=== PATIENT | male | born 1945 | race Asian ===

== ENCOUNTER 2021-02-24 03:13 | Emergency (ER) | payer MEDICARE ==
[~2021-02-24] VITALS: Ht 177.8 cm; Wt 95.0 kg
[2021-02-24] MEDS ORDERED: ALBUTEROL SULFATE HFA 90 MCG/PUFF 8 GM INHALER IH ONE (03:30)
[2021-02-24] MEDS ORDERED: 0.9% SODIUM CHLORIDE 10 ML SYRINGE IVP PRN (03:30)
[2021-02-24] MEDS ORDERED: ACETAMINOPHEN 1000 MG/ISO-OSM 100 ML IV ONE (03:30)
[2021-02-24] MEDS ORDERED: SODIUM CHLORIDE 0.9% 2,500 ML IV ONE (03:30)
[2021-02-24 04:08] LABS: D-DIMER 2.13 mg/L FEU (0.00-0.50); PROTHROMBIN TIME 10.7 SEC (9.4-11.6)
[2021-02-24 04:09] LABS: BASOPHILS % (AUTO) 0.4 % (0.0-2.0); EOSINOPHILS % (AUTO) 0.8 % (1.0-6.0); HEMATOCRIT 39.2 % (41-53); HEMOGLOBIN 13.6 g/dL (13.5-17.5); LYMPHOCYTES # (AUTO) 0.7 K/uL (1.0-4.8); LYMPHOCYTES % (AUTO) 13.4 % (22.0-44.0); MEAN CORPUSCULAR HEMOGLOBIN 31.9 pg (26.0-34.0); MEAN CORPUSCULAR HGB CONC 34.6 G/dL (31.0-37.0); MEAN CORPUSCULAR VOLUME 92 fL (80-100); MONOCYTES # (AUTO) 0.2 K/uL (0.1-1.0); MONOCYTES % (AUTO) 3.2 % (2.0-9.0); NEUTROPHILS # (AUTO) 4.6 K/uL (1.8-7.7); NEUTROPHILS % (AUTO) 82.2 % (40.0-70.0); PLATELET COUNT (AUTO) 190 K/uL (150-450); RED BLOOD CELL COUNT(AUTO) 4.25 MIL/uL (4.50-5.90)
[2021-02-24 04:18] LABS: COVID AG,FIA SOURCE NASOPHARYNGEAL
[2021-02-24 04:19] LABS: ANION GAP 11 mmol/L (8-16); CALCIUM, TOTAL 8.7 mg/dL (8.8-10.5); CARBON DIOXIDE 25 mmol/L (22-29); CHLORIDE 101 mmol/L (98-107); CREATININE 1.19 mg/dL (0.60-1.30); GLOMERULAR FILTR. RATE CALC 60 mL/min (>60); GLUCOSE,RANDOM 273 mg/dL (70-110); POTASSIUM 3.6 mmol/L (3.5-5.1); SODIUM SERUM 137 mmol/L (136-145); UREA NITROGEN, BLOOD 14 mg/dL (7-18)
[2021-02-24] MEDS ORDERED: AZITHROMYCIN 500 MG/NS 250 ML IV ONE (04:30)
[2021-02-24] MEDS ORDERED: CefTRIAXone 1 GM/DEXTROSE 50 ML IV ONE (04:30)
[2021-02-24 04:40] LABS: APPEARANCE,URINE CLEAR (CLEAR); GLUCOSE, URINE (UA) 250 mg/dL (NEGATIVE); KETONES,URINE TRACE mg/dL (NEGATIVE); LEUKOCYTE ESTERASE ,URINE SMALL (NEGATIVE); NITRATE,URINE NEGATIVE (NEGATIVE); OCCULT BLOOD,URINE MODERATE (NEGATIVE); PROTEIN,URINE SEE CONFIRM (NEGATIVE)
[2021-02-24 04:41] LABS: INFLUENZA TYPE A NEGATIVE FOR TYPE A (NEGATIVE); INFLUENZA TYPE B NEGATIVE FOR TYPE B (NEGATIVE)
[2021-02-24 04:42] LABS: ALANINE AMINOTRANSFERASE 93 U/L (12-78); ALBUMIN 3.2 g/dL (3.4-5.0); ALKALINE PHOSPHATASE 65 U/L (46-116); ASPARTATE AMINOTRANSFERASE 58 U/L (15-37); BILIRUBIN,TOTAL 0.6 mg/dL (0.1-1.0); CREATINE KINASE, TOTAL ONLY 270 U/L (39-308); TOTAL PROTEIN, SERUM 7.3 g/dL (6.4-8.2)
[2021-02-24 04:46] LABS: BILIRUBIN,URINE PRELIM. POSITIVE (NEGATIVE)
[2021-02-24 04:47] LABS: SULFOSALICYLIC ACID,URINE 4+ (Negative)
[2021-02-24 04:48] LABS: BACTERIA,URINE Moderate /HPF (None Seen)
[2021-02-24 04:50] LABS: B-TYPE NATRIURETIC PEPTIDE 139 pg/mL (0-100)
[2021-02-24 05:13] LABS: LACTIC ACID 3.5 mmol/L (0.4-2.0)
[2021-02-24 08:30] VITALS: BP 140/93
== END 2021-02-24 09:11 | disposition short-term general hospital (02) ==
LOC: EMS 03:15
DX: A41.9 Sepsis, unspecified organism (principal); J18.9 Pneumonia, unspecified organism; N39.0 Urinary tract infection, site not specified; I45.10 Unspecified right bundle-branch block; Z20.822 Contact with and (suspected) exposure to COVID-19
CPT/HCPCS: 36415; 71045; 80053; 81001; 82550; 83605; 83880; 84145; 84484; 85025; 85379; 85610; 85730; 87040; 87077; 87086; 87205; 87426; 87804; 93005; 94640; 96365; 96367; 96375; 99291; J0131; J0456; J0696; U0003; 81002; J3535

== ENCOUNTER 2021-05-09 18:35 | Emergency (ER) | payer MEDICARE ==
[~2021-05-09] VITALS: Ht 180.3 cm; Wt 84.0 kg
[2021-05-09] MEDS ORDERED: LOSA-382 PO (18:52)
[2021-05-09] MEDS ORDERED: FLUT1BLS3 IH (18:52)
[2021-05-09 21:00] VITALS: BP 133/85
[2021-05-09 21:32] LABS: APPEARANCE,URINE CLEAR (CLEAR); BILIRUBIN,URINE NEGATIVE (NEGATIVE); GLUCOSE, URINE (UA) >=1000 mg/dL (NEGATIVE); KETONES,URINE 15 mg/dL (NEGATIVE); LEUKOCYTE ESTERASE ,URINE TRACE (NEGATIVE); NITRATE,URINE POSITIVE (NEGATIVE); OCCULT BLOOD,URINE TRACE (NEGATIVE); PROTEIN,URINE TRACE (NEGATIVE); UROBILINOGEN,URINE 0.2 mg/dL (<=1.0)
[2021-05-09 21:47] LABS: BACTERIA,URINE Many /HPF (None Seen); RBC,URINE 0-2 /HPF (0-2); WBC,URINE 51-100 /HPF (0-5)
[2021-05-09 21:48] LABS: SQUAMOUS EPITHELIAL CELL,UR Few /LPF (None Seen)
[2021-05-09] MEDS ORDERED: CEPH500B PO (21:56)
[2021-05-09] MEDS ORDERED: CEPHALEXIN MONOHYDRATE 500 MG CAPSULE PO ONE (22:00)
== END 2021-05-09 22:11 | disposition home or self-care (01) ==
LOC: EMS 18:46
DX: N39.0 Urinary tract infection, site not specified (principal); J45.909 Unspecified asthma, uncomplicated; E11.9 Type 2 diabetes mellitus without complications; I10 Essential (primary) hypertension; F17.210 Nicotine dependence, cigarettes, uncomplicated
CPT/HCPCS: 81001; 87086; 99283

== ENCOUNTER 2021-06-02 02:54 | Inpatient (IN) | payer MEDICARE ==
[2021-06-02] VITALS (7 sets, daily range): BP systolic 96–180; BP diastolic 50–87
[~2021-06-02] VITALS: Ht 180.3 cm; Wt 95.5 kg
[~2021-06-02 02:54] MED LIST: CEPH500B PO; FLUT1BLS3 IH; LOSA-382 PO
[2021-06-02] MEDS ORDERED: ACETAMINOPHEN 1000 MG/ISO-OSM 100 ML IV ONE (03:00)
[2021-06-02] MEDS ORDERED: 0.9% SODIUM CHLORIDE 10 ML SYRINGE IVP PRN (03:00)
[2021-06-02] MEDS ORDERED: PIPERACILLIN/TAZO 3.375 GM/D5W 50 ML IV ONE (03:00)
[2021-06-02] MEDS ORDERED: SODIUM CHLORIDE 0.9% 1,000 ML IV ONE (03:00)
[2021-06-02] MEDS ORDERED: VANCOMYCIN HCL 1 GM/D5% WATER 200 ML IV ONE ×2 (03:00→21:00)
[2021-06-02 03:58] LABS: COVID AG,FIA SOURCE NASOPHARYNGEAL
[2021-06-02 04:06] LABS: ALANINE AMINOTRANSFERASE 38 U/L (12-78); ALBUMIN 2.7 g/dL (3.4-5.0); ALKALINE PHOSPHATASE 62 U/L (46-116); ANION GAP 17 mmol/L (8-16); ASPARTATE AMINOTRANSFERASE 32 U/L (15-37); BILIRUBIN,TOTAL 0.7 mg/dL (0.1-1.0); CALCIUM, TOTAL 8.3 mg/dL (8.8-10.5); CARBON DIOXIDE 23 mmol/L (22-29); CHLORIDE 94 mmol/L (98-107); CREATINE KINASE, TOTAL ONLY 85 U/L (39-308); GLOMERULAR FILTR. RATE CALC 59 mL/min (>60); PHOSPHORUS 2.2 mg/dL (2.5-4.9); POTASSIUM 3.5 mmol/L (3.5-5.1); SODIUM SERUM 134 mmol/L (136-145); TOTAL PROTEIN, SERUM 7.7 g/dL (6.4-8.2); UREA NITROGEN, BLOOD 14 mg/dL (7-18)
[2021-06-02] MEDS ORDERED: ONDANSETRON HCL 4 MG/2 ML VIAL IVP PRN (04:15)
[2021-06-02 04:31] LABS: BASOPHILS % (AUTO) 0.4 % (0.0-2.0); EOSINOPHILS % (AUTO) 0.5 % (1.0-6.0); HEMATOCRIT 37.7 % (41-53); LYMPHOCYTES # (AUTO) 0.4 K/uL (1.0-4.8); LYMPHOCYTES % (AUTO) 8.9 % (22.0-44.0); MEAN CORPUSCULAR HEMOGLOBIN 31.7 pg (26.0-34.0); MEAN CORPUSCULAR HGB CONC 34.5 G/dL (31.0-37.0); MEAN CORPUSCULAR VOLUME 92 fL (80-100); MONOCYTES # (AUTO) 0.2 K/uL (0.1-1.0); MONOCYTES % (AUTO) 4.7 % (2.0-9.0); PLATELET COUNT (AUTO) 205 K/uL (150-450); RED BLOOD CELL COUNT(AUTO) 4.11 MIL/uL (4.50-5.90)
[2021-06-02] MEDS ORDERED: MAGNESIUM SULFATE 2 GM/WATER 50 ML IV ONE (05:00)
[2021-06-02] MEDS ORDERED: POTASSIUM CHLORIDE 20 MEQ ER TABLET PO ONE (05:00)
[2021-06-02] MEDS ORDERED: POTASSIUM PHOS,M-BASIC-D-BASIC 10 MMOL in DEXTROSE 5%-WATER 100 ML IV ONE (05:00)
[2021-06-02] MEDS ORDERED: INSULIN REGULAR, HUMAN 100 UNITS/ML IVP ONE (05:00)
[2021-06-02 05:16] LABS: AMMONIA < 10 umol/L (11-32)
[2021-06-02 05:18] LABS: GLUCOSE,RANDOM 419 mg/dL (70-110); LACTIC ACID 1.7 mmol/L (0.4-2.0)
[2021-06-02 05:24] LABS: NEUTROPHILS % (AUTO) 85.5 % (40.0-70.0)
[2021-06-02 05:31] LABS: B-TYPE NATRIURETIC PEPTIDE 104 pg/mL (0-100)
[2021-06-02 05:53] LABS: INFLUENZA TYPE A NEGATIVE FOR TYPE A (NEGATIVE)
[2021-06-02 06:09] LABS: INFLUENZA TYPE B POSITIVE FOR TYPE B (NEGATIVE)
[2021-06-02 06:31] LABS: GLUCOMETER DEV NAME(LOC) ERT.5; GLUCOSE,POINT OF CARE 367 MG/DL (70-110)
[2021-06-02 07:26] LABS: GLUCOSE,POINT OF CARE 335 MG/DL (70-110)
[2021-06-02] MEDS: POTASSIUM CHL 10 MEQ/WATER 50 ML IV SCH ×2 (07:34→08:53)
[2021-06-02] MEDS ORDERED: DEXTROSE 50%-WATER 25 GM/50 ML SYRINGE IVP PRN (08:00)
[2021-06-02] MEDS: RINGERS SOLUTION,LACTATED 1,000 ML IV SCH ×3 (08:23→23:09)
[2021-06-02] MEDS: INSULIN GLARGINE,HUM.REC.ANLOG 100 UNITS/ML SQ SCH ×2 (08:23→20:11)
[2021-06-02] MEDS: HEPARIN SODIUM,PORCINE 5,000 UNITS/ML VIAL SQ SCH ×3 (08:23→23:09)
[2021-06-02] MEDS ORDERED: PNEUMOCOCCAL VACCINE POLYVALENT 0.5 ML VIAL [PPSV23] IM. ONE (11:45)
[2021-06-02] MEDS: PIPERACILLIN/TAZO 3.375 GM/D5W 50 ML IV SCH ×3 (12:00→23:09)
[2021-06-02] MEDS: INSULIN LISPRO 100 UNITS/ML SQ PRN ×3 (12:06→20:12)
[2021-06-02 12:31] LABS: GLUCOMETER DEV NAME(LOC) 5S.1B; GLUCOSE,POINT OF CARE 395 MG/DL (70-110)
[2021-06-02] MEDS: OSELTAMIVIR PHOSPHATE 75 MG CAPSULE PO SCH ×2 (13:42→20:12)
[2021-06-02 15:50] LABS: BILIRUBIN,URINE NEGATIVE (NEGATIVE); GLUCOSE, URINE (UA) >=1000 mg/dL (NEGATIVE); KETONES,URINE 40-60 mg/dL (NEGATIVE); NITRATE,URINE NEGATIVE (NEGATIVE); PH,URINE 5.5 (5.0-8.0); PROTEIN,URINE TRACE mg/dL (NEGATIVE); SPECIFIC GRAVITIY, URINE 1.029 (1.003-1.030); UROBILINOGEN,URINE <=1.0 mg/dL (<=1.0)
[2021-06-02 15:56] LABS: AMPHET/METH SCREEN,URINE NEGATIVE (NEGATIVE); BARBITURATE SCREEN, URINE NEGATIVE (NEGATIVE); BENZODIAZEPINES SCREEN,URINE NEGATIVE (NEGATIVE); CANNABINOID SCREEN,URINE NEGATIVE (NEGATIVE); COCAINE SCREEN,URINE NEGATIVE (NEGATIVE); METHADONE SCREEN, URINE NEGATIVE (NEGATIVE); OPIATE SCREEN,URINE NEGATIVE (NEGATIVE); PHENCYCLIDINE SCREEN,URINE NEGATIVE (NEGATIVE)
[2021-06-02 16:22] LABS: APPEARANCE,URINE HAZY (CLEAR); LEUKOCYTE ESTERASE ,URINE MODERATE (NEGATIVE); OCCULT BLOOD,URINE SMALL (NEGATIVE)
[2021-06-02 16:23] LABS: BACTERIA,URINE Moderate /HPF (None Seen)
[2021-06-02 17:31] LABS: GLUCOMETER DEV NAME(LOC) 5N.3; GLUCOSE,POINT OF CARE 379 MG/DL (70-110)
[2021-06-02] MEDS: ACETAMINOPHEN 325 MG TABLET PO PRN ×2 (17:44→20:13)
[2021-06-02] MEDS ORDERED: ALBUTEROL SULFATE 2.5 MG/0.5 ML NEB SOLUTION NEB PRN (17:45)
[2021-06-03 04:29] VITALS: BP 109/59
[2021-06-03] MEDS: PIPERACILLIN/TAZO 3.375 GM/D5W 50 ML IV SCH ×3 (04:47→16:23)
[2021-06-03] MEDS: ACETAMINOPHEN 325 MG TABLET PO PRN ×2 (04:48→21:06)
[2021-06-03 06:46] LABS: GLUCOMETER DEV NAME(LOC) 5N.3; GLUCOSE,POINT OF CARE 308 MG/DL (70-110)
[2021-06-03] MEDS: INSULIN LISPRO 100 UNITS/ML SQ PRN ×4 (06:46→21:07)
[2021-06-03 07:16] LABS: ANION GAP 8 mmol/L (8-16); CALCIUM, TOTAL 8.3 mg/dL (8.8-10.5); CARBON DIOXIDE 26 mmol/L (22-29); CHLORIDE 101 mmol/L (98-107); CREATININE 0.78 mg/dL (0.60-1.30); GLUCOSE,RANDOM 174 mg/dL (70-110); PHOSPHORUS 2.4 mg/dL (2.5-4.9); POTASSIUM 3.1 mmol/L (3.5-5.1); SODIUM SERUM 135 mmol/L (136-145); UREA NITROGEN, BLOOD 9 mg/dL (7-18)
[2021-06-03 07:17] LABS: GLOMERULAR FILTR. RATE CALC > 60 mL/min (>60)
[2021-06-03 07:44] VITALS: BP 96/57
[2021-06-03] MEDS ORDERED: VANCOMYCIN HCL 750 MG in DEXTROSE 5%-WATER 250 ML IV SCH (08:00)
[2021-06-03] MEDS: HEPARIN SODIUM,PORCINE 5,000 UNITS/ML VIAL SQ SCH (08:13)
[2021-06-03] MEDS: OSELTAMIVIR PHOSPHATE 75 MG CAPSULE PO SCH ×2 (08:13→21:05)
[2021-06-03] MEDS: INSULIN GLARGINE,HUM.REC.ANLOG 100 UNITS/ML SQ SCH ×2 (08:16→21:07)
[2021-06-03 11:16] VITALS: BP 104/64
[2021-06-03] MEDS: POTASSIUM CHLORIDE 20 MEQ ER TABLET PO PRN (11:35)
[2021-06-03] MEDS: SODIUM CHLORIDE 0.9% 1,000 ML IV SCH ×2 (11:36→21:11)
[2021-06-03 11:57] LABS: GLUCOMETER DEV NAME(LOC) 5S.1B; GLUCOSE,POINT OF CARE 181 MG/DL (70-110)
[2021-06-03 11:57] LABS: GLUCOMETER DEV NAME(LOC) 5S.1B; GLUCOSE,POINT OF CARE 250 MG/DL (70-110)
[2021-06-03 15:29] VITALS: BP 109/60
[2021-06-03] MEDS: VANCOMYCIN HCL 750 MG in DEXTROSE 5%-WATER 250 ML IV SCH (16:20)
[2021-06-03 20:00] VITALS: BP 114/64
[2021-06-04] VITALS: BP 109/55
[2021-06-04] MEDS: PIPERACILLIN/TAZO 3.375 GM/D5W 50 ML IV SCH ×5 (00:03→22:46)
[2021-06-04] MEDS: VANCOMYCIN HCL 750 MG in DEXTROSE 5%-WATER 250 ML IV SCH ×4 (00:04→23:40)
[2021-06-04 04:00] VITALS: BP 112/61
[2021-06-04] MEDS: ACETAMINOPHEN 325 MG TABLET PO PRN (05:00)
[2021-06-04] MEDS: SODIUM CHLORIDE 0.9% 1,000 ML IV SCH (05:01)
[2021-06-04 06:36] LABS: ANION GAP 11 mmol/L (8-16); CALCIUM, TOTAL 8.4 mg/dL (8.8-10.5); CARBON DIOXIDE 26 mmol/L (22-29); CHLORIDE 99 mmol/L (98-107); CREATININE 0.75 mg/dL (0.60-1.30); GLUCOSE,RANDOM 184 mg/dL (70-110); POTASSIUM 3.1 mmol/L (3.5-5.1); SODIUM SERUM 136 mmol/L (136-145); UREA NITROGEN, BLOOD 8 mg/dL (7-18); VANCOMYCIN,RANDOM 17.5 mcg/mL (25.0-50.0)
[2021-06-04 06:46] LABS: GLOMERULAR FILTR. RATE CALC > 60 mL/min (>60)
[2021-06-04 06:46] LABS: GLUCOMETER DEV NAME(LOC) 5N.3; GLUCOSE,POINT OF CARE 264 MG/DL (70-110)
[2021-06-04 06:47] LABS: GLUCOMETER DEV NAME(LOC) 5N.3; GLUCOSE,POINT OF CARE 300 MG/DL (70-110)
[2021-06-04] MEDS: INSULIN LISPRO 100 UNITS/ML SQ PRN ×4 (06:47→20:09)
[2021-06-04 09:02] VITALS: BP 123/72
[2021-06-04] MEDS: OSELTAMIVIR PHOSPHATE 75 MG CAPSULE PO SCH ×2 (09:04→20:09)
[2021-06-04] MEDS: INSULIN GLARGINE,HUM.REC.ANLOG 100 UNITS/ML SQ SCH ×2 (09:04→20:09)
[2021-06-04] MEDS: POTASSIUM CHLORIDE 20 MEQ ER TABLET PO PRN (09:10)
[2021-06-04 12:16] LABS: GLUCOMETER DEV NAME(LOC) 5S.1B; GLUCOSE,POINT OF CARE 327 MG/DL (70-110)
[2021-06-04 12:16] LABS: GLUCOMETER DEV NAME(LOC) 5S.1B; GLUCOSE,POINT OF CARE 180 MG/DL (70-110)
[2021-06-04 12:53] VITALS: BP 131/75
[2021-06-04 17:09] VITALS: BP 131/75
[2021-06-04 19:36] LABS: GLUCOMETER DEV NAME(LOC) 5N.3; GLUCOSE,POINT OF CARE 240 MG/DL (70-110)
[2021-06-04] MEDS: POTASSIUM CHL 10 MEQ/WATER 50 ML IV PRN (21:48)
[2021-06-04 23:18] VITALS: BP 127/73
[2021-06-05 01:51] VITALS: BP 128/68
[2021-06-05] MEDS: POTASSIUM CHL 10 MEQ/WATER 50 ML IV PRN (03:27)
[2021-06-05] MEDS: PIPERACILLIN/TAZO 3.375 GM/D5W 50 ML IV SCH ×4 (04:19→23:46)
[2021-06-05 05:11] LABS: GLUCOMETER DEV NAME(LOC) 5S.1B; GLUCOSE,POINT OF CARE 259 MG/DL (70-110)
[2021-06-05] MEDS: INSULIN LISPRO 100 UNITS/ML SQ PRN ×4 (05:42→21:05)
[2021-06-05 05:46] VITALS: BP 127/68
[2021-06-05 07:06] LABS: BASOPHILS % (AUTO) 0.7 % (0.0-2.0); EOSINOPHILS % (AUTO) 1.3 % (1.0-6.0); HEMATOCRIT 35.9 % (41-53); HEMOGLOBIN 12.1 g/dL (13.5-17.5); LYMPHOCYTES # (AUTO) 1.5 K/uL (1.0-4.8); LYMPHOCYTES % (AUTO) 29.1 % (22.0-44.0); MEAN CORPUSCULAR HEMOGLOBIN 30.8 pg (26.0-34.0); MEAN CORPUSCULAR HGB CONC 33.7 G/dL (31.0-37.0); MEAN CORPUSCULAR VOLUME 91 fL (80-100); MONOCYTES # (AUTO) 0.4 K/uL (0.1-1.0); MONOCYTES % (AUTO) 6.8 % (2.0-9.0); NEUTROPHILS # (AUTO) 3.2 K/uL (1.8-7.7); NEUTROPHILS % (AUTO) 62.1 % (40.0-70.0); PLATELET COUNT (AUTO) 241 K/uL (150-450); RED BLOOD CELL COUNT(AUTO) 3.94 MIL/uL (4.50-5.90)
[2021-06-05 07:08] LABS: ANION GAP 10 mmol/L (8-16); CALCIUM, TOTAL 8.5 mg/dL (8.8-10.5); CARBON DIOXIDE 26 mmol/L (22-29); CHLORIDE 99 mmol/L (98-107); GLUCOSE,RANDOM 249 mg/dL (70-110); POTASSIUM 3.4 mmol/L (3.5-5.1); SODIUM SERUM 135 mmol/L (136-145); UREA NITROGEN, BLOOD 7 mg/dL (7-18)
[2021-06-05 07:10] LABS: GLOMERULAR FILTR. RATE CALC > 60 mL/min (>60)
[2021-06-05 09:47] VITALS: BP 104/58
[2021-06-05] MEDS: INSULIN GLARGINE,HUM.REC.ANLOG 100 UNITS/ML SQ SCH ×2 (09:48→21:05)
[2021-06-05] MEDS: POTASSIUM CHLORIDE 20 MEQ ER TABLET PO PRN (09:49)
[2021-06-05] MEDS: OSELTAMIVIR PHOSPHATE 75 MG CAPSULE PO SCH ×2 (09:49→21:04)
[2021-06-05] MEDS: VANCOMYCIN HCL 750 MG in DEXTROSE 5%-WATER 250 ML IV SCH ×2 (09:51→16:37)
[2021-06-05 13:30] VITALS: BP 136/80
[2021-06-05 13:32] LABS: GLUCOMETER DEV NAME(LOC) 5N.3; GLUCOSE,POINT OF CARE 234 MG/DL (70-110)
[2021-06-05 13:32] LABS: GLUCOMETER DEV NAME(LOC) 5N.3; GLUCOSE,POINT OF CARE 324 MG/DL (70-110)
[2021-06-05 16:46] VITALS: BP 132/75
[2021-06-05 17:31] LABS: GLUCOMETER DEV NAME(LOC) 5N.3; GLUCOSE,POINT OF CARE 271 MG/DL (70-110)
[2021-06-05 23:06] LABS: GLUCOMETER DEV NAME(LOC) 5S.2B; GLUCOSE,POINT OF CARE 234 MG/DL (70-110)
[2021-06-06] MEDS: VANCOMYCIN HCL 750 MG in DEXTROSE 5%-WATER 250 ML IV SCH ×2 (00:44→09:04)
[2021-06-06 02:21] VITALS: BP 136/63
[2021-06-06] MEDS: PIPERACILLIN/TAZO 3.375 GM/D5W 50 ML IV SCH ×2 (04:37→11:51)
[2021-06-06 06:04] VITALS: BP 130/59
[2021-06-06] MEDS: INSULIN LISPRO 100 UNITS/ML SQ PRN ×2 (06:12→11:49)
[2021-06-06 06:56] LABS: ANION GAP 9 mmol/L (8-16); CARBON DIOXIDE 27 mmol/L (22-29); CHLORIDE 100 mmol/L (98-107); CREATININE 0.86 mg/dL (0.60-1.30); GLUCOSE,RANDOM 253 mg/dL (70-110); POTASSIUM 3.7 mmol/L (3.5-5.1); SODIUM SERUM 136 mmol/L (136-145); UREA NITROGEN, BLOOD 10 mg/dL (7-18)
[2021-06-06 06:58] LABS: GLOMERULAR FILTR. RATE CALC > 60 mL/min (>60)
[2021-06-06 08:14] VITALS: BP 123/66
[2021-06-06] MEDS: OSELTAMIVIR PHOSPHATE 75 MG CAPSULE PO SCH (09:04)
[2021-06-06] MEDS: INSULIN GLARGINE,HUM.REC.ANLOG 100 UNITS/ML SQ SCH (09:18)
[2021-06-06 11:41] VITALS: BP 132/80
[2021-06-06] MEDS ORDERED: LEVO750T68 PO (12:09)
[2021-06-06] MEDS ORDERED: METF-1211 PO (12:09)
[2021-06-07 01:01] LABS: GLUCOMETER DEV NAME(LOC) 5S.2B; GLUCOSE,POINT OF CARE 234 MG/DL (70-110)
[2021-06-07 21:36] LABS: GLUCOMETER DEV NAME(LOC) 5N.3; GLUCOSE,POINT OF CARE 309 MG/DL (70-110)
== END 2021-06-06 15:00 | disposition home or self-care (01) | DRG 871 ==
LOC: EMS 02:55 → 5N 06:56
PROVIDERS: ADMIT Internal Medicine; ATTEND Internal Medicine
DX: A41.9 Sepsis, unspecified organism (principal); I62.03 Nontraumatic chronic subdural hemorrhage; G92.9 Unspecified toxic encephalopathy; J10.08 Influenza due to other identified influenza virus with other specified pneumonia; J15.0 Pneumonia due to Klebsiella pneumoniae; N39.0 Urinary tract infection, site not specified; E11.65 Type 2 diabetes mellitus with hyperglycemia; I10 Essential (primary) hypertension; J45.909 Unspecified asthma, uncomplicated; E11.9 Type 2 diabetes mellitus without complications; E87.6 Hypokalemia; F01.50 Vascular dementia, unspecified severity, without behavioral disturbance, psychotic disturbance, mood disturbance, and anxiety; Z87.891 Personal history of nicotine dependence; Z71.6 Tobacco abuse counseling
CPT/HCPCS: 70450; 71045; 80048; 80053; 80202; 80307; 81001; 82009; 82140; 82550; 82962; 83605; 83735; 83880; 84100; 84132; 84145; 84484; 85025; 87040; 87077; 87081; 87086; 87205; 87804; 93005; 99291; J0131; J1644; J1815; J2543; J3370; J3475; J3480; J3490; J7030; J7060; J7120; 36415-L1; 36415-TC